=== PATIENT | female | born 1970 | race Caucasian/White ===

== ENCOUNTER 2022-11-02 07:36 | Outpatient (CLI) | payer BC ==
[2022-11-02] MEDS ORDERED: Iopamidol-370 76% 500 ML MDV (1 ML CHARGE) ONE (15:23)
== END 2022-11-02 07:37 | disposition home or self-care (01) ==
LOC: BICCT 07:36
PROVIDERS: ATTEND Physician Assistant Medical
DX: R74.8 Abnormal levels of other serum enzymes (principal); R10.84 Generalized abdominal pain
CPT/HCPCS: 74177; 82565; Q9967